=== PATIENT | male | born 1980 ===

== ENCOUNTER 2016-04-09 16:56 | Emergency (ER) | payer OTHER ==
--- NOTE | 2016-04-09 20:41 | UC ---
Back Pain HPI - HPI Summary HPI Summary: BENDING OVER TO GET SOMETHING OUT OF HIS BAG YESTERDAY AND FELT A POP. WAS SORE BUT PAIN GOT WORSE TODAY AFTER HE BENT OVER TO FEED HIS DOG. PAIN ACROSS LOW BACK. NO NUMBNESS OR TINGLING. NO SADDLE ANESTHESIA. - History of Current Complaint Chief Complaint: UCBackPain Stated Complaint: BACK INJURY Time Seen by Provider: 04/09/16 20:24 Hx Obtained From: Patient Onset/Duration: Sudden Onset Timing: Constant Severity Initially: Mild Severity Currently: Moderate Pain Intensity: 8 Pain Scale Used: 0-10 Numeric Back Pain: Is Discrete @ - LOW BACK Character: Sharp - STABBING Aggravating: Movement Alleviating: Rest Associated Signs And Symptoms: Negative: Swelling, Redness, Bruising, Fever, Weakness, Numbness, Tingling, Abdominal Pain, Flank Pain, Bladder Incontinence, Bowel Incontinence - Allergies/Home Medications Allergies/Adverse Reactions: Allergies Allergy/AdvReac Type Severity Reaction Status Date / Time No Known Allergies Allergy Verified 04/09/16 18:35 PMH/Surg Hx/FS Hx/Imm Hx Endocrine History Of: Denies: Diabetes, Thyroid Disease Cardiovascular History Of: Reports: Cardiac Disorders - hr irreg Denies: Hypertension Respiratory History Of: Denies: COPD, Asthma GI/ History Of: Denies: Ulcer - Surgical History Surgical History: Yes Surgery Procedure, Year, and Place: t&a - Family History Known Family History: Negative: Hypertension - Social History Alcohol Use: Occasionally Substance Use Type: None Smoking Status (MU): Never Smoked Tobacco Review of Systems Constitutional: Negative Skin: Negative Respiratory: Negative Cardiovascular: Negative Gastrointestinal: Negative Genitourinary: Negative Musculoskeletal: Decreased ROM, Myalgia All Other Systems Reviewed And Are Negative: Yes Physical Exam Triage Information Reviewed: Yes Appearance: Well-Appearing, Well-Nourished, Pain Distress - MODERATE Vital Signs: Initial Vital Signs Temp 97.8 F 04/09/16 18:31 Pulse 74 04/09/16 18:31 Resp 18 04/09/16 18:31 BP 145/78 04/09/16 18:31 Pulse Ox 100 04/09/16 18:31 Vital Signs Reviewed: Yes Eyes: Positive: Conjunctiva Clear ENT: Positive: Hearing grossly normal Neck: Positive: Supple Respiratory: Positive: No respiratory distress, No accessory muscle use Cardiovascular: Positive: Pulses Normal Abdomen Description: Positive: Soft Musculoskeletal: Positive: No Edema, ROM Limited @ - BACK Neurological: Positive: Alert Psychological: Positive: Age Appropriate Behavior Skin: Negative: rashes Back Pain Course/Dx - Differential Dx/Diagnosis Provider Diagnoses: ACUTE LOW BACK STRAIN Discharge - Discharge Plan Condition: Stable Disposition: HOME Prescriptions: Cyclobenzaprine TAB* [Flexeril TAB*] 10 mg PO BID PRN #30 tab PRN Reason: Pain Naproxen [Naproxen EC] 500 mg PO BID PRN #30 tab PRN Reason: Pain Patient Education Materials: Low Back Strain (ED) Referrals: Carlos Enrique Washington MD [Medical Doctor] - If Needed Additional Instructions: BE SURE TO GO THROUGH SLOW RANGE OF MOTION AND STRETCHING EXERCISES DAILY YOU ARE ABLE TO PREVENT STIFFENING UP AND MAKING THE DISCOMFORT WORSE.
[2016-04-09] MEDS ORDERED: Naproxen TAB* 250 MG PO ONE (20:43)
[2016-04-09] MEDS ORDERED: Cyclobenzaprine TAB* 10 MG PO ONE (20:45)
== END 2016-04-09 20:55 | disposition home or self-care (01) ==
LOC: UCEAST 16:56
DX: S39.012A Strain of muscle, fascia and tendon of lower back, initial encounter (principal); X50.1XXA Overexertion from prolonged static or awkward postures, initial encounter; Y93.89 Activity, other specified; Y92.9 Unspecified place or not applicable
CPT/HCPCS: 99202; A9270-GY; G0463

== ENCOUNTER 2017-04-04 18:05 | Emergency (ER) | payer BC ==
--- NOTE | 2017-04-04 19:30 | UC ---
FLU HPI - HPI Summary HPI Summary: body aches and chills recent flu exposure - History of Current Complaint Chief Complaint: UCGeneralIllness Stated Complaint: BODY ACHES Time Seen by Provider: 04/04/17 19:23 Hx Obtained From: Patient Onset/Duration: Sudden Onset, Lasting Days - 1 Severity Currently: Moderate Severity Initially: Moderate Pain Intensity: 4 Pain Scale Used: 0-10 Numeric Associated Signs & Symptoms: Positive: Fever, Myalgia, Headache Related Hx: Possible Flu/Infectious Exposure - Allergy/Home Medications Allergies/Adverse Reactions: Allergies Allergy/AdvReac Type Severity Reaction Status Date / Time No Known Allergies Allergy Verified 04/04/17 18:44 PMH/Surg Hx/FS Hx/Imm Hx Previously Healthy: Yes - Surgical History Surgical History: Yes Surgery Procedure, Year, and Place: T&A - Family History Known Family History: Negative: Hypertension - Social History Occupation: Employed Full-time Lives: With Family Alcohol Use: Occasionally Substance Use Type: None Smoking Status (MU): Never Smoked Tobacco Review of Systems Constitutional: Fever, Chills, Fatigue Skin: Negative Eyes: Negative ENT: Negative Respiratory: Negative Cardiovascular: Negative Gastrointestinal: Negative Genitourinary: Negative Motor: Negative Neurovascular: Negative Musculoskeletal: Arthralgia, Myalgia Neurological: Negative Psychological: Negative Is Patient Immunocompromised?: No All Other Systems Reviewed And Are Negative: Yes Physical Exam Triage Information Reviewed: Yes Appearance: Well-Appearing, No Pain Distress, Well-Nourished Vital Signs: Initial Vital Signs Temp 99.5 F 04/04/17 18:41 Pulse 102 04/04/17 18:41 Resp 18 04/04/17 18:41 BP 127/84 04/04/17 18:41 Pulse Ox 99 04/04/17 18:41 Vital Signs Reviewed: Yes Eye Exam: Normal Eyes: Positive: Conjunctiva Clear ENT Exam: Normal ENT: Positive: Normal ENT inspection, Hearing grossly normal, Pharynx normal, Uvula midline. Negative: Nasal congestion, Nasal drainage, TMs normal, Tonsillar swelling, Tonsillar exudate, Trismus, Muffled voice, Hoarse voice, Dental tenderness, Sinus tenderness Dental Exam: Normal Neck exam: Normal Neck: Positive: Supple, Nontender Respiratory Exam: Normal Respiratory: Positive: Chest non-tender, Lungs clear, Normal breath sounds, No respiratory distress, No accessory muscle use Cardiovascular Exam: Normal Cardiovascular: Positive: RRR, No Murmur, Pulses Normal, Brisk Capillary Refill Abdominal Exam: Normal Abdomen Description: Positive: Nontender, No Organomegaly, Soft. Negative: CVA Tenderness (R), CVA Tenderness (L) Musculoskeletal Exam: Normal Musculoskeletal: Positive: Strength Intact, ROM Intact, No Edema Neurological Exam: Normal Neurological: Positive: Alert Psychological Exam: Normal Diagnostics - Laboratory Diagnostic Studies Completed/Ordered: influenza A/B (-) Flu Course/Dx - Course Course Of Treatment: rest ibuprofen tylenol, tamiflu follow with pcp prn - Differential Dx/Diagnosis Provider Diagnoses: Influenza like illness Discharge - Discharge Plan Condition: Stable Disposition: HOME Prescriptions: Oseltamivir CAP* [Tamiflu CAP*] 75 mg PO BID #10 cap Patient Education Materials: Oseltamivir (By mouth) Referrals: [facility] [Provider Group] - If Needed
== END 2017-04-04 20:18 | disposition home or self-care (01) ==
LOC: UCEAST 18:05
DX: M79.1 Myalgia (principal); J11.1 Influenza due to unidentified influenza virus with other respiratory manifestations
CPT/HCPCS: 87502; 99212; G0463